=== PATIENT | male | born 1945 | race Caucasian/White ===

== ENCOUNTER → 2023-04-01 | Outpatient (REF) | payer MEDICARE ==
[2023-04-01 12:31] LABS: COMPLEMENT C3 52.2 MG/DL (90.0-170.0)
[2023-04-01 12:32] LABS: COMPLEMENT C4 15.9 MG/DL (12-36)
== END ==
LOC: M SFHCCLAY 08:11
PROVIDERS: ATTEND Student in an Organized Health Care Education/Training Program
DX: R76.8 Other specified abnormal immunological findings in serum (principal); R79.82 Elevated C-reactive protein (CRP); M25.531 Pain in right wrist